=== PATIENT | female | born 1990 | race Caucasian/White ===

== ENCOUNTER 2020-05-09 13:39 | Emergency (ER) | payer BC ==
[~2020-05-09 13:39] MED LIST: ALL DAY ALLERGY10 M2 PO; ALPRAZOLAM0.25 MG PO; BUPROPION XL150 MG PO; DOXYCYCLINE HY100 MG PO; EPINEPHRIN0.3 MG/0.3 INJ; HALOBETASOL TOP; HUMIBID LA TAB600 MG PO; K-TAB ER10 MEQ PO; MEDROL DOSEPAK 24 MG PO; NORETHINDRONE AC5 MG PO; NORETHINDRONE PO; OMEPRAZOLE40 MG PO; ORILISSA150 MG PO; PREDNISONE20 MG PO; PROAIR HFA8.5 GM INH; TESSALON PERLE100 MG PO
[2020-05-09] MEDS ORDERED: PREDNISONE 50 M50 MG PO (14:45)
[2020-05-09] MEDS ORDERED: BENADRYL25 MG PO (14:45)
== END 2020-05-09 16:23 | disposition home or self-care (01) ==
LOC: ER1 13:39
DX: T78.40XA Allergy, unspecified, initial encounter (principal); Z88.0 Allergy status to penicillin; Z91.018 Allergy to other foods
CPT/HCPCS: 93005; 96372; 99283; J1200; J2930

== ENCOUNTER 2021-04-04 14:02 | Emergency (ER) | payer BC ==
[~2021-04-04 14:02] MED LIST changes: +BENADRYL25 MG PO; +PREDNISONE 50 M50 MG PO
[2021-04-04 14:46] LABS: RED BLOOD COUNT 4.54 M/UL (4.00-5.10)
[2021-04-04 15:01] LABS: BUN/CREATININE RATIO 18 (0-10)
== END 2021-04-04 22:40 ==
LOC: ER1 14:02
PROVIDERS: Emergency Medicine
DX: G40.909 Epilepsy, unspecified, not intractable, without status epilepticus (principal); Z20.822 Contact with and (suspected) exposure to COVID-19
CPT/HCPCS: 70450; 71045; 80053; 80185; 80307; 81001; 85025; 87086; 93005; 96374; 96375; 99285; J0696; J2060; J7030; U0002